=== PATIENT | female | born 1945 | race Caucasian/White ===

== ENCOUNTER 2017-05-17 19:56 | Emergency (ER) | payer MEDICARE, MEDICAID ==
[~2017-05-17] VITALS: Ht 157.5 cm; Wt 64.4 kg
--- NOTE | 2017-05-17 20:05 | NUR ---
TO BED 4 BIB [facility] C/O R GREAT TOE NAIL AVULSION, MINIMAL BLEEDING NOTED. PENDING ER MD THACKER. PT AAOX4 NO ACUTE DISTRESS NOTED, RESP EVEN AND UNLABORED.
--- NOTE | 2017-05-17 20:52 | NUR ---
REPORT CALLED TO JAKE [facility]ENZ STAFF.
--- NOTE | 2017-05-17 20:54 | NUR ---
CALLED [facility] FOR TRANSPORT BACK TO [facility] ETA 20 MIN
--- NOTE | 2017-05-17 20:57 | NUR ---
WOUND CARE DONE BY VALERIE CONNOR.
--- NOTE | 2017-05-17 21:13 | NUR ---
REPORT GIVEN TO EMT TRANSPORT.
[2017-05-17 21:20] VITALS: BP 132/63
== END 2017-05-17 21:21 | disposition home or self-care (01) ==
LOC: ER 20:02
DX: S91.201A Unspecified open wound of right great toe with damage to nail, initial encounter (principal); B35.1 Tinea unguium; I10 Essential (primary) hypertension; G35 Multiple sclerosis; Z85.828 Personal history of other malignant neoplasm of skin; Z90.89 Acquired absence of other organs; X58.XXXA Exposure to other specified factors, initial encounter; Y93.89 Activity, other specified; Y92.89 Other specified places as the place of occurrence of the external cause; Y99.9 Unspecified external cause status
CPT/HCPCS: 99283; A4606; A6402 ×2; Z7610

== ENCOUNTER 2017-09-21 18:32 | Emergency (ER) | payer MEDICARE, MEDICAID ==
[~2017-09-21] VITALS: Ht 157.5 cm; Wt 57.6 kg
--- NOTE | 2017-09-21 19:07 | NUR ---
DR. ELISE IS AT THE BEDSIDE.
--- NOTE | 2017-09-21 19:15 | NUR ---
REPORT GIVEN TO SHUBHAM TINSLEY FOR [facility].
--- NOTE | 2017-09-21 19:27 | NUR ---
CALLED [employer] MANAGER FOR DR RCIE, ALEXIA BAHENA. LEFT VOICEMAIL.
--- NOTE | 2017-09-21 19:46 | NUR ---
CALLED [facility] FOR TRANSPORT TO [facility] 15 MIN
[2017-09-21] MEDS ORDERED: AZITHROMYCIN 250 MG TABLET ONE (19:57)
[2017-09-21] MEDS ORDERED: AZITHROMYCIN 250 MG TABLET PO ONE (20:00)
--- NOTE | 2017-09-21 20:00 | NUR ---
wound care done.
--- NOTE | 2017-09-21 20:15 | NUR ---
[facility] to Eleanor Clemons at [facility]. Patient is aaox4, nad noted. vss. no further complaints.
[2017-09-21 20:16] VITALS: BP 154/70
== END 2017-09-21 20:17 | disposition home or self-care (01) ==
LOC: ER 18:33
DX: L89.321 Pressure ulcer of left buttock, stage 1 (principal); I51.7 Cardiomegaly; R05 Cough; I10 Essential (primary) hypertension; Z98.890 Other specified postprocedural states
CPT/HCPCS: 71010; 99283; A4606; Z7610